=== PATIENT | female | born 2000 | race Two or more races ===

== ENCOUNTER 2020-11-04 20:52 | Emergency (ER) | payer OTHER ==
[~2020-11-04] VITALS: Ht 160 cm; Wt 38.6 kg
[2020-11-04 21:25] VITALS: BP 130/93
== END 2020-11-04 22:31 | disposition home or self-care (01) ==
LOC: ER 20:52
DX: R04.0 Epistaxis (principal)

== ENCOUNTER 2021-01-10 10:33 | Emergency (ER) | payer MEDICAID, OTHER ==
[~2021-01-10] VITALS: Ht 160 cm; Wt 36.3 kg
[2021-01-10 10:33] VITALS: BP 132/84
[2021-01-10 11:27] LABS: Urine Bacteria FEW /hpf (None Seen); Urine Blood Negative /uL (Negative); Urine Specific Gravity 1.007 (1.001-1.035); Urine WBC 1 /hpf (0 - 5)
== END 2021-01-10 12:18 | disposition home or self-care (01) ==
LOC: ER 10:33
DX: R31.9 Hematuria, unspecified (principal)
CPT/HCPCS: 81001; 81025